=== PATIENT | female | born 1955 | race Caucasian/White ===

== ENCOUNTER 2021-07-10 12:23 | Emergency (ER) | payer OTHER | END 2021-07-10 15:05 | disposition home or self-care (01) | LOC: ER1 12:23 | DX: S51.802A Unspecified open wound of left forearm, initial encounter (principal); J44.9 Chronic obstructive pulmonary disease, unspecified; Y83.8 Other surgical procedures as the cause of abnormal reaction of the patient, or of later complication, without mention of misadventure at the time of the procedure | CPT/HCPCS: 96374; 96375; 99283; J2270; J2405 ==